=== PATIENT | female | born 2005 | race Two or more races ===

== ENCOUNTER 2024-07-25 21:16 | Emergency (ER) | payer MEDICAID, OTHER ==
[~2024-07-25] VITALS: Ht 165.1 cm; Wt 89.8 kg
[2024-07-25] MEDS: diphenhdrAMINE HCL 50 MG/1 ML VL IM ONE (22:45)
[2024-07-25 22:49] VITALS: BP 104/51; PULSE 73; RESP 17; TEMP 98.4; O2SAT 97
--- NOTE | 2024-07-25 23:15 | ED.PDOC ---
History of Present Illness(SKN HPI Comments This is a 19-year-old female states she is 8 weeks with a chief complaint of allergic reaction. She notes symptoms started 24 hours ago complaining of itchy rash to her body. She states unsure what she is allergic to denies any new laundry detergent any new foods or currently denies being on any new medications. States has not taken any medicine because she was unsure what to take because she is . She denies vaginal bleeding, spotting, pain, throat swelling, difficulty breathing, shortness of breath, or chest pain. Chief Complaint: Allergic Reaction Time Seen by MD: 21:49 History of Present Illness: Nurses Notes, Medications, Allergies Allergies: Coded Allergies: NO KNOWN ALLERGIES (Unverified , 07/25/24) Information Source: Patient Mode of Arrival: Ambulatory Past Medical History PAST MEDICAL HISTORY: Denies Surgical History: Denies all surgeries TRAFFIC SURVEY TECHNICIAN History: No Pertinent TRAFFIC SURVEY TECHNICIAN History Family History Family History: Reviewed,noncontributory to illness Social History Smoker: Non-Smoker Alcohol: Denies ETOH Use Drugs: Denies Drug Use Constitutional: denies: chills, diaphoresis, fatigue, fever, malaise, sweats, weakness, others EENTM: denies: blurred vision, double vision, ear bleeding, ear discharge, ear drainage, ear pain, ear ringing, eye pain, eye redness, hearing loss, mouth pain, mouth swelling, nasal discharge, nose bleeding, nose congestion, nose pain, photophobia, tearing, throat pain, throat swelling, voice changes, others Respiratory: denies: cough, hemoptysis, orthopnea, SOB at rest, shortness of breath, SOB with excertion, stridor, wheezing, others Cardiovascular: denies: chest pain, dizzy spells, diaphoresis, Dyspnea on ex ertion, edema, irregular heart beat, left arm pain, lightheadedness, palpitations, PND, syncope, others Gastrointestinal: denies: abdomen distended, abdominal pain, blood streaked bowels, constipated, diarrhea, dysphagia, difficulty swallowing, hematemesis, melena, nausea, poor appetite, poor fluid intake, rectal bleeding, rectal pain, vomiting, others Genitourinary: denies: abnormal vagina bleeding, burning, dyspareunia, dysuria, flank pain, frequency, hematuria, incontinence, pain, , vagina discharge, urgency, others Neurological: denies: dizziness, fainting, headache, left sided numbness, left sided weakness, numbness, paresthesia, pre-existing deficit, right sided numbness, right sided weakness, seizure, speech problems, tingling, tremors, weakness, others Musculoskeletal: denies: back pain, gout, joint pain, joint swelling, muscle pain, muscle stiffness, neck pain, others Integumetry: denies: bruises, change in color, change in hair/nails, dryness, laceration, lesions, lumps, rash, wounds, others Allergic/Immunocompromised: denies: Difficulty Healing, Frequent Infections, Hives, Itching, others Hematologic/Lymphatic: denies: anemia, blood clots, easy bleeding, easy bruising, swollen glands, others Endocrine: denies: excessive hunger, excessive sweating, excessive thirst, excessive urination, flushing, intolerance to cold, intolerance to heat, unexplained weight gain, unexplained weight loss, others Psychiatric: denies: anxiety, bipolar disorder, depression, hopeless, panic disorder, schizophrenia, sleepless, suicidal, others Physical Exam General Appearance: No Apparent Distress, Normal HEENT: Normal ENT Inspection, Pharynx Normal, TMs Normal Neck: Full Range of Motion, Non-Tender, Normal, Normal Inspection Respiratory: Chest Non-Tender, Lungs Clear, No Accessory Muscle Use, No Respiratory Distress, Normal Breath Sounds Cardiovascular: No Edema, No JVD, No Murmur, No Gallop, Normal Peripheral Pulses, Regular Rate/Rhythm Breast Exam: Deferred Gastrointestinal: No Organomegaly, Non Tender, No Pulsatile Mass, Normal Bowel Sounds, Soft Genitalia: Deferred Pelvic: Deferred Rectal: Deferred Extremities: Normal capillary refill, Normal inspection, Normal range of motion, Non-tender, No pedal edema Musculoskeletal : Apperance: Normal Neurologic: Alert, liner checker II-XII nml as Tested, No Motor Deficits, Normal Affect, Normal Mood, No Sensory Deficits Cerebellar Function: Normal Reflexes: Normal Skin: Dry, Normal Color, Rash (Urticarial rash noted on bilateral arms neck and face no open lesions or drainage.), Warm Lymphatic: No Adenopathy Was a procedure done? Was a procedure done?: No Differential Diagnosis (INTG) Differential Diagnosis: Cellulitis, Contact Dermatitis X-Ray, Labs, Meds, VS Vital Signs Date Time Temp Pulse Resp B/P (MAP) Pulse Ox O2 Delivery O2 Flow Rate FiO2 07/25/24 22:49 98.4 73 17 104/51 (68) 97 98.4 07/25/24 22:49 73 17 97 Room Air 07/25/24 21:44 98.8 79 18 113/60 (77) 98 07/25/24 21:44 18 98 Room Air* 0 21 Current Medications Medications (Trade) Dose Ordered Sig/Bienvenido Route Start Time Stop Time Status Last Admin Diphenhydramine HCl (Benadryl Injection) 25 mg ONCE ONCE IM 07/25/24 22:30 07/25/24 22:31 DC 07/25/24 22:45 X-Ray, Labs, Meds, VS Comment Patient given 25 mg Benadryl IM reports improvement in symptoms requesting discharge at this time. Advised to increase p.o. fluids with electrolytes. Advised to follow up with her PCP in 2-3 days as necessary. Advised to warp picker [id number] Benadryl and follow up labeled dosing instructions. ER return precautions given patient indicated understanding patient agrees with discharge plan of care. Time of 1ST Reevaluation: 23:14 Reevaluation 1ST: Improved Patient Education/Counseling: Diagnosis, Treatment, Prognosis, Need For Follow Up Family Education/Counseling: Diagnosis, Treatment, Prognosis, Need For Follow Up Departure 1 Departure Time of Disposition: 23:15 Impression: Primary Impression: Allergic reaction Qualified Codes: T78.40XA - Allergy, unspecified, initial encounter Disposition: HOME / SELF CARE / HOMELESS Condition: Stable Discharged With: Relative (Father) Critical Care Note Critical Care Time?: No Stability Stability form required: COLLEEN Correia Jul 25, 2024 23:15
== END 2024-07-25 23:53 | disposition home or self-care (01) ==
LOC: ER 21:16
DX: O9A.211 Injury, poisoning and certain other consequences of external causes complicating pregnancy, first trimester (principal); T78.49XA Other allergy, initial encounter; Z3A.08 8 weeks gestation of pregnancy
CPT/HCPCS: 96372; 99283; J1200

== ENCOUNTER 2025-02-03 10:15 | Observation (INO) | payer MEDICAID ==
[2025-02-03 11:03] LABS: Urine Bacteria None Seen /hpf (None Seen)
[2025-02-03 11:06] LABS: Basophils # (auto) 0 10 ^3/uL (0-0.2); Basophils % (auto) 0.3 % (0.0-2.0); Eosinophils # (auto) 0.1 10 ^3/uL (0-0.8); Eosinophils % (auto) 0.8 % (0.0-7.0); Hemoglobin 9.8 g/dL (12.2-16.2); Lymphocytes % (auto) 33.6 % (10.0-50.0); Monocytes # (auto) 0.6 10 ^3/uL (0-1.3); Nucleated Red Blood Cells % 0.1 %
[2025-02-03 11:08] LABS: Hematocrit 29.9 % (36.0-46.0); Lymphocytes # (auto) 3.2 10 ^3/uL (0.4-5.4); Mean Corpuscular Hemoglobin 24.9 pg (28.0-32.0); Mean Corpuscular Hgb Conc. 32.7 g/dL (32.0-36.0); Mean Corpuscular Volume 76.2 fL (80.0-100.0); Monocytes % (auto) 6.1 % (0.0-12.0); Neutrophils # (auto) 5.7 10 ^3/uL (1.6-8.6); Neutrophils % (auto) 59.2 % (37.0-80.0); Platelet Count (auto) 231 10^3/uL (140-450); Red Blood Cells 3.93 10^6/uL (4.0-5.20); Red Cell Distribution Width 14.8 % (11.8-14.3); White Blood Cell 9.6 10^3/uL (4.4-10.8)
[2025-02-03 11:20] LABS: Urine Blood Negative /uL (Negative); Urine Budding Yeast OCCASIONAL /hpf (None Seen); Urine Clarity Clear (Clear); Urine Color Colorless (Yellow); Urine Protein, UAD Negative (Negative); Urine Specific Gravity 1.008 (1.001-1.035); Urine Sperm PRESENT /hpf (None Seen); Urine Squamous Epithelial Cell FEW /hpf (<5); Urine Urobilinogen Normal (Negative); Urine WBC 2 /HPF (0-5); Urine pH 5.5 (5.0-9.0)
[2025-02-03 11:24] LABS: Alanine Aminotransferase 20 U/L (7-40); Albumin 3.6 g/dL (3.2-4.8); Anion Gap 10 (5-15); Aspartate Aminotransferase 24 U/L (<34); BUN/Creatinine Ratio 17.2 (10.0-20.0); Blood Urea Nitrogen 10 mg/dL (9-23); Calcium 9.2 mg/dL (8.7-10.4); Carbon Dioxide 21 mmol/L (20-31); Glucose 85 mg/dL (74-106); Potassium 3.8 mmol/L (3.5-5.1); Sodium 140 mmol/L (136-145); Total Protein 6.1 g/dL (5.7-8.2)
[2025-02-03 11:25] LABS: INR 0.94 (0.9-1.15)
[2025-02-03 11:27] LABS: Alkaline Phosphatase 134 U/L (46-116); Bilirubin, Total 0.2 mg/dL (0.2-1.0); Chloride 109 mmol/L (98-107)
[2025-02-03 11:34] LABS: Creatinine, Urine 36.24 mg/dL (30.0-125.0); Urine Protein/Creatinine Ratio 0.17
[2025-02-03 11:41] LABS: Protein, Urine < 6.0 mg/dL (1-14)
[2025-02-03 11:44] LABS: Uric Acid 5.9 mg/dL (3.1-7.8)
--- NOTE | 2025-02-03 13:59 | DVHDS2 ---
Physician Discharge Progress N Final Diagnosis: swellon exterimeties 36wks Operations or Procedures: Operations or Procedures nst mariam vega Condition on Discharge: Good Disposition: Home Discharge Instructions: Diet: Regular Activity: Light activity Medications: na Follow Up Care: Specialist: 1w Discharge Statement: "Patient was advised to return to the ER or call 911 if any headaches, dizziness, shortness of breath, chest pain, abdominal pain, bleeding, fevers, or worsening of medical condition. Patient was counseled about treatment plan, medications, possible side effects, patientverbalized understanding. All questions were answered to the best of my ability. This discharge took greater then 30 minutes in planning, reviewing documentation, counseling the patient, and discussing with other team members." Visit Coding OBGYN Date of Service: Feb 03, 2025 Billing Provider: DI ASHFORD DO DIRECTOR INSTITUTION Common Visit Codes: 85080-[id number] OBS CARE (HIGH) DIRECTOR INSTITUTION Procedure Codes: 69287-61- NON-STRESS TEST DI ASHFORD DO Feb 03, 2025 13:58
== END 2025-02-03 12:20 | disposition home or self-care (01) ==
LOC: UNDOADMOB 10:15 → LDRP 10:15 → UNDODISOB 12:20
PROVIDERS: ADMIT Obstetrics & Gynecology; ATTEND Obstetrics & Gynecology
DX: O26.893 Other specified pregnancy related conditions, third trimester (principal); M79.89 Other specified soft tissue disorders; Z3A.36 36 weeks gestation of pregnancy; Z79.899 Other long term (current) drug therapy
CPT/HCPCS: 36415; 59025; 80053; 81001; 81002; 82570; 84156; 84550; 85025; 85610; 85730; 94760; G0378

== ENCOUNTER 2025-02-07 12:16 | Observation (INO) | payer MEDICAID ==
[2025-02-07] MEDS ORDERED: PREN-96 PO (12:49)
[2025-02-07 13:09] LABS: Basophils # (auto) 0 10 ^3/uL (0-0.2); Basophils % (auto) 0.4 % (0.0-2.0); Eosinophils # (auto) 0.1 10 ^3/uL (0-0.8); Hematocrit 30.3 % (36.0-46.0); Monocytes # (auto) 0.5 10 ^3/uL (0-1.3); Red Cell Distribution Width 15.3 % (11.8-14.3); White Blood Cell 8.8 10^3/uL (4.4-10.8)
[2025-02-07 13:11] LABS: Eosinophils % (auto) 0.9 % (0.0-7.0); Lymphocytes # (auto) 2.6 10 ^3/uL (0.4-5.4); Lymphocytes % (auto) 29.1 % (10.0-50.0); Mean Corpuscular Volume 75.7 fL (80.0-100.0); Monocytes % (auto) 5.6 % (0.0-12.0); Neutrophils # (auto) 5.6 10 ^3/uL (1.6-8.6); Nucleated Red Blood Cells % 0.3 %; Platelet Count (auto) 241 10^3/uL (140-450)
[2025-02-07 13:21] LABS: INR 0.96 (0.9-1.15); Partial Thromboplastin Time 28.8 SEC (24.5-34.5); Prothrombin Time 10.2 sec (9.3-11.8)
[2025-02-07 14:02] LABS: Urine Bacteria FEW /hpf (None Seen); Urine Blood Negative /uL (Negative); Urine Clarity Clear (Clear); Urine Color Colorless (Yellow); Urine Protein, UAD Negative (Negative); Urine Specific Gravity 1.006 (1.001-1.035); Urine Squamous Epithelial Cell FEW /hpf (<5); Urine Urobilinogen Normal (Negative); Urine WBC 2 /HPF (0-5)
--- NOTE | 2025-02-07 14:03 | DVH ---
OB ULTRASOUND, LIMITED CLINICAL INDICATION: PIH TECHNIQUE: Multiple grayscale ultrasound and M-mode images were obtained of the pelvis for evaluation of intrauterine . COMPARISON: None FINDINGS: A single living fetus is seen in cephalic presentation. Biophysical profile: 03/26 breathin movements: 2 tone: 2 Amniotic fluid: 2 Placenta: Posterior. Amniotic fluid: Visibly normal. GEMA 12.6 cm heart rate: 125 beats/min. A complete anatomic survey was not performed on this exam. IMPRESSION: Biophysical profile: 03/26
[2025-02-07 14:08] LABS: Urine Protein/Creatinine Ratio 0.15
[2025-02-07 14:13] LABS: Alanine Aminotransferase 30 U/L (7-40); Anion Gap 11 (5-15); Aspartate Aminotransferase 32 U/L (<34); Blood Urea Nitrogen 11 mg/dL (9-23); Calcium 8.9 mg/dL (8.7-10.4); Carbon Dioxide 20 mmol/L (20-31); Glucose 80 mg/dL (74-106); Potassium 4.1 mmol/L (3.5-5.1); Sodium 139 mmol/L (136-145); Total Protein 6.2 g/dL (5.7-8.2); Uric Acid 6.3 mg/dL (3.1-7.8)
[2025-02-07 14:14] LABS: Albumin 3.6 g/dL (3.2-4.8)
[2025-02-07 14:19] LABS: Alkaline Phosphatase 134 U/L (46-116); Bilirubin, Total 0.3 mg/dL (0.2-1.0); Chloride 108 mmol/L (98-107)
[2025-02-07 14:19] LABS: Protein, Urine < 6.0 mg/dL (1-14)
[2025-02-07 14:20] LABS: Urine Total Volume, 24 Hours 4400 mL
[2025-02-07 14:22] LABS: Protein, Urine < 6.0 mg/dL (1-14)
--- NOTE | 2025-02-07 18:39 | DVHDS2 ---
Discharge Summary Date of Admission Feb 07, 2025 at 12:16 Date of Discharge: Feb 07, 2025 Admitting Diagnosis PIH 36 weeks here for evaluation and NST performed as well as turned to the entire urine protein 24 hour. No PH signs or symptoms blood pressure normal Labs/Diagnostic Data: Laboratory Results Test 02/07/25 12:54 02/07/25 12:17 02/07/25 12:15 White Blood Count 8.8 10^3/uL (4.4-10.8) Red Blood Count 4.00 10^6/uL (4.0-5.20) Hemoglobin 10.0 g/dL (12.2-16.2) Hematocrit 30.3 % (36.0-46.0) Mean Corpuscular Volume 75.7 fL (80.0-100.0) Mean Corpuscular Hemoglobin 25.0 pg (28.0-32.0) Mean Corpuscular Hemoglobin Concent 33.0 g/dL (32.0-36.0) Red Cell Distribution Width 15.3 % (11.8-14.3) Platelet Count 241 10^3/uL (140-450) Mean Platelet Volume 8.6 fL (6.9-10.8) Neutrophils (%) (Auto) 64.0 % (37.0-80.0) Lymphocytes (%) (Auto) 29.1 % (10.0-50.0) Monocytes (%) (Auto) 5.6 % (0.0-12.0) Eosinophils (%) (Auto) 0.9 % (0.0-7.0) Basophils (%) (Auto) 0.4 % (0.0-2.0) Neutrophils # (Auto) 5.6 10 ^3/uL (1.6-8.6) Lymphocytes # (Auto) 2.6 10 ^3/uL (0.4-5.4) Monocytes # (Auto) 0.5 10 ^3/uL (0-1.3) Eosinophils # (Auto) 0.1 10 ^3/uL (0-0.8) Basophils # (Auto) 0 10 ^3/uL (0-0.2) Nucleated Red Blood Cells 0.3 % Prothrombin Time 10.2 sec (9.3-11.8) Prothrombin Time INR 0.96 (0.9-1.15) Activated Partial Thromboplast Time 28.8 SEC (24.5-34.5) Sodium Level 139 mmol/L (136-145) Potassium Level 4.1 mmol/L (3.5-5.1) Chloride Level 108 mmol/L (98-107) Carbon Dioxide Level 20 mmol/L (20-31) Anion Gap 11 (5-15) Blood Urea Nitrogen 11 mg/dL (9-23) Creatinine 0.55 mg/dL (0.550-1.02) Glomerular Filtration Rate Calc 134 mL/min (>90) BUN/Creatinine Ratio 20.0 (10.0-20.0) Serum Glucose 80 mg/dL (74-106) Uric Acid 6.3 mg/dL (3.1-7.8) Calcium Level 8.9 mg/dL (8.7-10.4) Total Bilirubin 0.3 mg/dL (0.2-1.0) Aspartate Amino Transferase (AST) 32 U/L (<34) Alanine Aminotransferase (ALT) 30 U/L (7-40) Alkaline Phosphatase 134 U/L (46-116) Total Protein 6.2 g/dL (5.7-8.2) Albumin 3.6 g/dL (3.2-4.8) Urine Color Colorless (Yellow) Urine Clarity Clear (Clear) Urine pH 6.0 (5.0-9.0) Urine Specific [place] 1.006 (1.001-1.035) Urine Protein Negative (Negative) Urine Ketones Negative (Negative) Urine Blood Negative /uL (Negative) Urine Nitrite Negative (Negative) Urine Bilirubin Negative (Negative) Urine Urobilinogen Normal mg/dL (Negative) Urine Leukocyte Esterase 1+ /uL (Negative) Urine RBC 1 /hpf (0 - 4) Urine Microscopic WBC 2 /HPF (0-5) Urine Squamous Epithelial Cells Few /hpf (<5) Urine Bacteria Few /hpf (None Seen) Urine Glucose Normal mg/dL (Normal) Urine Creatinine 39.30 mg/dL (30.0-125.0) Urine Total Protein 24 Hour mg/24 Hr (<149.1) Urine Protein/Creatinine Ratio 0.15 Urine Total Protein < 6.0 mg/dL (1-14) Other Laboratory Tests 02/07/25 12:54 Brief Hx & Hospital Course: NST performed reassuring heart tones Condition at Discharge: Good Final Diagnosis/Problems List Thirty-six weeks generalized swelling rule out PH Discharge Disposition: Home Discharge Instruct/Medications Diet: Regular Activity: No Restrictions, As Tolerated Activity comment: Kick counts labor precautions and kick counts PH precautions Follow Up/Referral: As scheduled weekly Discharge Statement: "Patient was advised to return to the ER or call 911 if any headaches, dizziness, shortness of breath, chest pain, abdominal pain, bleeding, fevers, or worsening of medical condition. Patient was counseled about treatment plan, medications, possible side effects, patientverbalized understanding. All questions were answered to the best of my ability. This discharge took greater then 30 minutes in planning, reviewing documentation, counseling the patient, and discussing with other team members." ASSESSMENT ASSESSMENT Assessment Visit Coding OBGYN Date of Service: Feb 07, 2025 Billing Provider: TIN LOPEZ DO EDDY CURRENT INSPECTOR Common Visit Codes: 02191-MVM/OBS SAME DATE (LOW), 18306-ETB/OBS SAME DATE (MOD), 42448-JAR/OBS SAME DATE (HIGH) EDDY CURRENT INSPECTOR Procedure Codes: 54853-94- NON-STRESS TEST TIN LOPEZ DO Feb 07, 2025 18:39
== END 2025-02-07 14:59 | disposition home or self-care (01) ==
LOC: LDRP 12:16
PROVIDERS: ADMIT Obstetrics & Gynecology; ATTEND Obstetrics & Gynecology
DX: O13.3 Gestational [pregnancy-induced] hypertension without significant proteinuria, third trimester (principal); Z98.890 Other specified postprocedural states; Z79.899 Other long term (current) drug therapy; Z3A.36 36 weeks gestation of pregnancy
CPT/HCPCS: 36415; 59025; 76819; 80053; 81001; 81002; 82570; 84156; 84550; 85025; 85610; 85730; 94760; G0378

== ENCOUNTER 2025-02-11 07:28 | Inpatient (IN) | payer MEDICAID ==
[2025-02-11] VITALS (8 sets, daily range): BP systolic 119–128; BP diastolic 64–79; PULSE 66–87; RESP 15–18; TEMP 98.4–99.3; O2SAT 95–100
[~2025-02-11] VITALS: Ht 165.1 cm; Wt 90.7 kg
[~2025-02-11 07:28] MED LIST: PREN-96 PO
[2025-02-11 11:00] LABS: Basophils # (auto) 0 10 ^3/uL (0-0.2); Eosinophils # (auto) 0.1 10 ^3/uL (0-0.8); Hemoglobin 9.7 g/dL (12.2-16.2); Lymphocytes # (auto) 3.5 10 ^3/uL (0.4-5.4); Monocytes # (auto) 0.5 10 ^3/uL (0-1.3)
[2025-02-11 11:02] LABS: Basophils % (auto) 0.5 % (0.0-2.0); Eosinophils % (auto) 0.7 % (0.0-7.0); Hematocrit 29.4 % (36.0-46.0); Lymphocytes % (auto) 36.6 % (10.0-50.0); Mean Corpuscular Hemoglobin 24.8 pg (28.0-32.0); Mean Corpuscular Hgb Conc. 32.8 g/dL (32.0-36.0); Mean Corpuscular Volume 75.6 fL (80.0-100.0); Monocytes % (auto) 4.9 % (0.0-12.0); Neutrophils # (auto) 5.5 10 ^3/uL (1.6-8.6); Neutrophils % (auto) 57.3 % (37.0-80.0); Nucleated Red Blood Cells % 0.2 %; Platelet Count (auto) 239 10^3/uL (140-450); Red Blood Cells 3.89 10^6/uL (4.0-5.20); Red Cell Distribution Width 15.3 % (11.8-14.3); White Blood Cell 9.6 10^3/uL (4.4-10.8)
[2025-02-11 11:15] LABS: INR 0.96 (0.9-1.15); Partial Thromboplastin Time 28.8 SEC (24.5-34.5); Prothrombin Time 10.2 sec (9.3-11.8)
[2025-02-11 11:17] LABS: Alanine Aminotransferase 45 U/L (7-40); Albumin 3.5 g/dL (3.2-4.8); Alkaline Phosphatase 136 U/L (46-116); Anion Gap 8 (5-15); Aspartate Aminotransferase 47 U/L (<34); BUN/Creatinine Ratio 12.9 (10.0-20.0); Bilirubin, Total 0.3 mg/dL (0.2-1.0); Blood Urea Nitrogen 8 mg/dL (9-23); Calcium 8.4 mg/dL (8.7-10.4); Carbon Dioxide 21 mmol/L (20-31); Chloride 109 mmol/L (98-107); Glucose 79 mg/dL (74-106); Potassium 3.9 mmol/L (3.5-5.1); Sodium 138 mmol/L (136-145)
--- NOTE | 2025-02-11 11:39 | DVH ---
CLINICAL HISTORY: -induced hypertension. COMPARISON: US BIOPHYSICAL PROFILE on DOS: 02/07/25 TECHNIQUE: biophysical profile was performed. Transabdominal sonographic images of the fetus we re obtained. FINDINGS: The fetus is in cephalic position. heart rate measures 144 BPM. Amniotic fluid index measures 13.4 cm. The placenta is posterior in position without evidence of previa or abruption. Umbi lical cord is draped across the face, without nuchal cord demonstrated. BPP profile is an overall score of 8/8, with 2/2 points for breathing, with at least one episode of breathing over a 30 second duration during a 30 minute observation, 2/2 points for m ovements, with 3 or more discrete body or limb movements, 2/2 points for tone, with one or more episodes of extremity extension with return to flexion, or opening and closing of hand, and 2/ 2 points for amniotic fluid, with at least 1 pocket of amniotic fluid that measures 2 cm in 2 perpend icular planes. IMPRESSION: 1. BPP score of 8/8. 2. Umbilical cord is draped across the face without nuchal cord demonstrated.
[2025-02-11 12:42] LABS: Urine Bacteria FEW /hpf (None Seen); Urine Blood Negative /uL (Negative); Urine Color Yellow (Yellow); Urine Protein, UAD TRACE (Negative); Urine Squamous Epithelial Cell MOD /hpf (<5); Urine Urobilinogen Normal (Negative); Urine WBC 4 /HPF (0-5)
[2025-02-11 12:43] LABS: Protein, Urine 47.4 mg/dL (1-14)
[2025-02-11 12:46] LABS: Creatinine, Urine 126.75 mg/dL (30.0-125.0); Urine Protein/Creatinine Ratio 0.37
[2025-02-11 12:49] LABS: Urine Clarity Cloudy (Clear)
--- NOTE | 2025-02-11 13:40 | DVHHP ---
ADMIT DATE: 02/11/2025 CHIEF COMPLAINT: Impending HELLP, severe preeclampsia. HISTORY OF PRESENT ILLNESS: The patient is a 19-year-old 1 para 0 with estimated gestational age of 37+ weeks, admitted for primary . The patient has had bilateral cataract surgery for which the bd special education teacher had recommended her to undergo primary . She presents for evaluation of preeclampsia. She has been seen for evaluation of preeclampsia and her blood pressures diastolic were in the higher 80s, close to 90; uric acid was 7.4; UPC is pending, previously was 0.39. Her liver enzymes have gone up. The patient is edematous. Subsequently, the patient is being taken for primary secondary to severe preeclampsia and impending HELLP. PAST MEDICAL HISTORY: None. PAST SURGICAL HISTORY: Cataract surgery. SOCIAL HISTORY: None. FAMILY HISTORY: None. OB-HUMAN RESOURCES DIRECTOR HISTORY: Primigravid. REVIEW OF SYSTEMS: Consistent with HPI. PHYSICAL EXAMINATION: VITAL SIGNS: Stable, afebrile. HEENT: Within normal limits. CARDIOVASCULAR: Regular rate and rhythm. LUNGS: Clear to auscultation. BREASTS: Symmetrical. No masses. ABDOMEN: Gravid. PELVIC: Cervix closed, thick, high. EXTREMITIES: No clubbing, cyanosis, or edema. IMPRESSION: * Intrauterine at 37+ weeks with severe preeclampsia. * Impending HELLP. * History of cataract surgery, recommended to have primary by bd special education teacher. PLAN: Primary transverse section. Informed consent obtained. Risks and complications of surgery including infection; bleeding; hematoma formation; injury to bowel, bladder or surrounding organs; possibility of DVT; pulmonary embolus; and risks of anesthesia were discussed with the patient. Options reviewed. All questions answered. The patient fully understands. She wishes to proceed with planned procedure. DO FLORENCE Solorzano/EKRabia TID: [id number] RECEIPT: [id number]
[2025-02-11] MEDS ORDERED: ONDANSETRON HCL 4 MG/2 ML VIAL IV PRN ×2 (15:00→16:45)
[2025-02-11] MEDS ORDERED: GUM (CHEWING) 1 GUM CHEW CHEW ONE (15:00)
[2025-02-11] MEDS ORDERED: ceFAZolin 1GM/50ML 50 ML IV SCH (15:00)
[2025-02-11] MEDS ORDERED: KETOROLAC TROMETH 30 MG/ML 1ML VIAL ONE (15:15)
[2025-02-11] MEDS ORDERED: GLYCOPYRROLATE 0.2 MG/ML 1ML VIAL ONE (15:15)
[2025-02-11] MEDS ORDERED: MORPHINE SULF PF 5 MG/10 ML VIAL ONE (15:15)
[2025-02-11] MEDS ORDERED: ePHEDrine SULFATE 50 MG/ML AMP ONE (15:15)
[2025-02-11] MEDS ORDERED: ONDANSETRON HCL 4 MG/2 ML VIAL ONE (15:15)
[2025-02-11] MEDS ORDERED: fentaNYL CITRATE 100 MCG/2 ML VL ONE (15:15)
--- NOTE | 2025-02-11 16:00 | DVHOP2 ---
Operative Report DATE OF OPERATION: 02/11/25 PREOPERATIVE DIAGNOSES: IUP AT 37+WKS WITH SEVERE PREECLAMPSIA,IMPENDING HELLP SYNDROME,CONGINATAL MATERNAL CATRACT DESIRES PCS POSTOPERATIVE DIAGNOSES: SAME,NUCHAL CORDX1 SURGEON: Aiyana Martin D.O./JAYLAN ANESTHESIOLOGIST: NARAYAN TYPE OF ANESTHESIA : SPINAL CONSENT: The patient was informed of the risks and benefits of the procedure. The patient was informed of the risks and benefits of the procedure. These include but are not limited to , complications of anesthesia, postoperative infection, incomplete relief of symptoms, recurrence of symptoms, damage to blood vessels, nerves and tendons, deep venous thrombosis, pulmonary embolism and possible need for repeat surgery in the future. FINDINGS: Baby [B] with Apgars of [8] and [9]. Grossly normal appearing tubes and ovaries.NUCHAL CORD X1 PROCEDURES: Primary low transverse section. PROCEDURE IN DETAIL: The patient was taken to the operating room. She already had an epidural in place. She was then placed in supine position with a leftward tilt. A Pfannenstiel skin incision was made 2 cm above the symphysis pubis. This incision was carried to the underlying layer of fascia. The fascia was nicked in the midline. The incision was extended laterally. The superior aspect of the fascial incision was grasped and elevated. The same procedure was done to the inferior aspect of the fascial incision. The rectus muscles were then in the midline. Peritoneum was identified and entered. Peritoneal incision was extended superiorly and inferiorly with good visualization of the bladder. Bladder blade was inserted. Vesicouterine peritoneum was identified and entered. Lower uterine segment was incised in a transverse fashion. The was delivered from vertex presentation. Infant was baby [B] with Apgars [8] and 9. Placenta was then removed manually. Uterus was exteriorized and cleared of all clots and debris. The incision was repaired using 0 Vicryl in a double-layered fashion. No bleeding was noted. Uterus was then returned to the abdomen. The gutters were cleared off all clots and debris. Peritoneum was closed using 0 Vicryl, fascia was closed using 0 Maxon, and skin was closed using dalton. The patient tolerated the procedure well. She was taken to the recovery room in stable condition. ESTIMATED BLOOD LOSS: Estimated blood loss was noted to be 500 mL. Visit Coding OBN Date of Service: Feb 11, 2025 Billing Provider: AIYANA MARTIN DO SOUND ENGINEERING TECHNICIAN Common Visit Codes: 63530-AEMWWDC INP/OBS CARE (HIGH) SOUND ENGINEERING TECHNICIAN Procedure Codes: 63128-YICFP OB CARE,VAG DELIVERY, 10831-Q-SSUCKSX DELIVERY ONLY AIYANA MARTIN DO Feb 11, 2025 16:00
--- NOTE | 2025-02-11 16:03 | POSTOP ---
Post-Operative Note Post-Operative Note Preop Diagnosis IUP AT 37WKS WITH SEVERE PIH,CHAD MAT CATARACT REQUIRING PCS,IMPENDING HELLP Postop Diagnosis: SAME,NUCHAL CORDX1 Operation performed PLTCS Specimen BABY BOY,APGARS 8-9 Anesthesia: Regional Anesthesiologist: NARAYAN Blood Loss(fluid mgmt) 500ML Surgeon Aiyana Martin Dental Instrument Maker JAYLAN Implant NA Complications & Mgmt NONE Date 02/11/25 Time 16:01 Visit Coding OBGYN Date of Service: Feb 11, 2025 Billing Provider: AIYANA MARTIN DO ELECTRONIC GLUER Common Visit Codes: 19993-KYIQSTY INP/OBS CARE (HIGH) ELECTRONIC GLUER Procedure Codes: 61510-V-IUZJDYB DELIVERY ONLY AIYANA MARTIN DO Feb 11, 2025 16:03
[2025-02-11] MEDS: ceFAZolin 1GM/50ML 50 ML IV ONE (16:23)
[2025-02-11] MEDS ORDERED: DexAMETHasone SOD PHOS 10MG/1ML VIAL INJ IV PRN (16:45)
[2025-02-11] MEDS ORDERED: KETOROLAC TROMETH 30 MG/ML 1ML VIAL IV PRN (16:45)
[2025-02-11] MEDS ORDERED: NALOXONE HCL 0.4 MG/ML VIAL IV PRN (16:45)
[2025-02-11] MEDS ORDERED: diphenhdrAMINE HCL 50 MG/1 ML VL IV PRN (16:45)
[2025-02-11] MEDS: LACTATED RINGER'S 1,000 ML IV ONE (17:28)
[2025-02-11] MEDS: LACTATED RINGER'S 1,000 ML IV SCH (17:28)
[2025-02-11 23:45] LABS: Basophils # (auto) 0 10 ^3/uL (0-0.2); Eosinophils # (auto) 0 10 ^3/uL (0-0.8); Eosinophils % (auto) 0.1 % (0.0-7.0); Hemoglobin 9.5 g/dL (12.2-16.2); Monocytes # (auto) 0.6 10 ^3/uL (0-1.3)
[2025-02-11 23:47] LABS: Basophils % (auto) 0.4 % (0.0-2.0); Hematocrit 29.1 % (36.0-46.0); Lymphocytes # (auto) 2.9 10 ^3/uL (0.4-5.4); Lymphocytes % (auto) 20.8 % (10.0-50.0); Mean Corpuscular Hemoglobin 24.9 pg (28.0-32.0); Mean Corpuscular Hgb Conc. 32.6 g/dL (32.0-36.0); Mean Corpuscular Volume 76.3 fL (80.0-100.0); Monocytes % (auto) 4.3 % (0.0-12.0); Neutrophils # (auto) 10.3 10 ^3/uL (1.6-8.6); Neutrophils % (auto) 74.4 % (37.0-80.0); Nucleated Red Blood Cells % 0.2 %; Platelet Count (auto) 240 10^3/uL (140-450); Red Blood Cells 3.82 10^6/uL (4.0-5.20); Red Cell Distribution Width 15.1 % (11.8-14.3); White Blood Cell 13.8 10^3/uL (4.4-10.8)
[2025-02-12] VITALS (15 sets, daily range): BP systolic 106–137; BP diastolic 54–79; PULSE 61–84; RESP 15–18; TEMP 97.7–99.1; O2SAT 95–100
[2025-02-12] MEDS: ceFAZolin 1GM/50ML 50 ML IV SCH (00:01)
[2025-02-12 00:21] LABS: Amphetamine Screen, Urine Neg (NEGATIVE); Barbiturate Scree,Urine Neg (NEGATIVE); Benzodiazephine Screen, Urine Neg (NEGATIVE); Cannabinoid Screen, Urine Neg (NEGATIVE); Cocaine Screen, Urine Neg (NEGATIVE); Opiate Scree,Urine Neg (NEGATIVE); Phencyclidine Screen, Urine Neg (NEGATIVE)
[2025-02-12] MEDS: ACETAMINOPHEN IV 1000 MG/100ML (10MG/ML) IV ONE (03:25)
--- NOTE | 2025-02-12 07:11 | DVHPN2 ---
Chief Complaints Patient reports: No new complaints Nursing reports: No new complaints Objective Vitals Vital Signs Date Time Temp Pulse Resp B/P (MAP) Pulse Ox O2 Delivery O2 Flow Rate FiO2 02/12/25 05:00 68 18 115/58 (77) 95 02/12/25 03:00 99.1 99.1 02/11/25 19:00 Room Air 02/11/25 16:28 99 Medications Current Medications Medications (Trade) Dose Ordered Sig/Bienvenido Route PRN Reason Start Time Stop Time Status Last Admin Cefazolin Sodium 50 ml @ 100 mls/hr Q8H IV 02/11/25 23:00 02/12/25 16:29 02/12/25 00:01 Diphenhydramine HCl (Benadryl Injection) 25 mg Q4HP PRN IV FOR ITCHING 02/11/25 16:45 Ketorolac Tromethamine (Toradol Injection) 30 mg Q6HP PRN IV MODERATE PAIN (4-6 PAIN SCALE) 02/11/25 16:45 02/16/25 16:44 Lactated Ringer's 1,000 ml @ 125 mls/hr Q8H IV 02/11/25 13:15 02/12/25 00:02 Ondansetron HCl (Zofran) 4 mg Q4HP PRN IV NAUSEA / VOMITING 02/11/25 16:45 General: Normal Lungs: Normal Cardiovascular: Normal Abdominal: Soft Extremities: Normal Studies Laboratory Tests 02/11/25 22:59 02/11/25 10:44 Test 02/11/25 10:44 Range/Units Serum Glucose 79 74-106 mg/dL Ass/Plan Assessment s/p pcs Plan supportive care Visit Coding OBGYN Date of Service: Feb 12, 2025 Billing Provider: DI ASHFORD DO TRAILER TANK TRUCK DRIVER Common Visit Codes: 22894-QNQMNOC INP/OBS CARE (HIGH) DI ASHFORD DO Feb 12, 2025 07:11
[2025-02-12] MEDS ORDERED: IBUP-1456 PO (07:12)
[2025-02-12] MEDS ORDERED: HYDR-4072 PO (07:12)
[2025-02-12] MEDS ORDERED: DOCU-94 PO (07:12)
[2025-02-12 07:35] LABS: Basophils # (auto) 0 10 ^3/uL (0-0.2); Basophils % (auto) 0.4 % (0.0-2.0); Eosinophils # (auto) 0 10 ^3/uL (0-0.8); Eosinophils % (auto) 0.2 % (0.0-7.0); Hemoglobin 8.4 g/dL (12.2-16.2); Neutrophils # (auto) 8.3 10 ^3/uL (1.6-8.6); Nucleated Red Blood Cells % 0.1 %; White Blood Cell 11.7 10^3/uL (4.4-10.8)
[2025-02-12 07:37] LABS: Hematocrit 26.1 % (36.0-46.0); Lymphocytes # (auto) 2.8 10 ^3/uL (0.4-5.4); Lymphocytes % (auto) 23.6 % (10.0-50.0); Mean Corpuscular Hemoglobin 24.4 pg (28.0-32.0); Mean Corpuscular Hgb Conc. 32.3 g/dL (32.0-36.0); Mean Corpuscular Volume 75.5 fL (80.0-100.0); Monocytes # (auto) 0.5 10 ^3/uL (0-1.3); Monocytes % (auto) 4.5 % (0.0-12.0); Neutrophils % (auto) 71.3 % (37.0-80.0); Platelet Count (auto) 224 10^3/uL (140-450); Red Blood Cells 3.45 10^6/uL (4.0-5.20); Red Cell Distribution Width 15.1 % (11.8-14.3)
[2025-02-12 07:53] LABS: Alanine Aminotransferase 34 U/L (7-40); Alkaline Phosphatase 108 U/L (46-116); Anion Gap 7 (5-15); BUN/Creatinine Ratio 10.4 (10.0-20.0); Bilirubin, Total 0.3 mg/dL (0.2-1.0); Calcium 8.9 mg/dL (8.7-10.4); Carbon Dioxide 23 mmol/L (20-31); Chloride 106 mmol/L (98-107); Glucose 81 mg/dL (74-106); Potassium 4.1 mmol/L (3.5-5.1); Sodium 136 mmol/L (136-145)
[2025-02-12 07:59] LABS: Albumin 3.1 g/dL (3.2-4.8); Aspartate Aminotransferase 43 U/L (<34); Blood Urea Nitrogen 8 mg/dL (9-23); Total Protein 5.1 g/dL (5.7-8.2)
[2025-02-12] MEDS: HYDROcodone-ACET 5/325MG TAB PO PRN (11:06)
[2025-02-12] MEDS: IBUPROFEN 800 MG TAB PO PRN (11:59)
[2025-02-12] MEDS: SIMETHICONE 80 MG CHEWABLE TABLET PO SCH (16:34)
[2025-02-12] MEDS: ONDANSETRON HCL 4 MG/2 ML VIAL IV ONE (18:45)
[2025-02-12] MEDS: LACT. RINGERS/OXYTOCIN 20UNITS 1,000 ML IV ONE (18:45)
[2025-02-12] MEDS: ceFAZolin 1GM/50ML 50 ML IV ONE ×2 (18:45→18:55)
[2025-02-12] MEDS: TETRACAINE 1% INJ 2 ML VIAL IJ ONE (18:45)
[2025-02-12] MEDS: DOCUSATE SOD 100 MG CAP PO SCH (21:50)
[2025-02-13] MEDS: TETANUS-DIPTH-ACEL PERTUSSIS 0.5ML SYR Tdap IM ONE (02:00)
[2025-02-13 03:00] VITALS: BP 114/60; PULSE 66; RESP 17; TEMP 98.1; O2SAT 96
--- NOTE | 2025-02-13 05:15 | DVHPN2 ---
Chief Complaints Patient reports: No new complaints Nursing reports: No new complaints Objective Vitals Vital Signs Date Time Temp Pulse Resp B/P (MAP) Pulse Ox O2 Delivery O2 Flow Rate FiO2 02/13/25 03:00 98.1 66 17 114/60 (78) 96 98.1 02/12/25 18:45 Room Air 02/11/25 16:28 99 Medications Current Medications Medications (Trade) Dose Ordered Sig/Bienvenido Route PRN Reason Start Time Stop Time Status Last Admin Acetaminophen/ Hydrocodone Bitart ([place] 5/325MG Tab) 1 tab Q4HPRN PRN PO FOR PAIN 1-6 02/12/25 10:45 Acetaminophen/ Hydrocodone Bitart ([place] 5/325MG Tab) 2 tab Q4HPRN PRN PO FOR PAIN 7-02/12/25 10:45 02/13/25 01:58 Dimethicone (Mylicon Tab) 80 mg QID PO 02/12/25 12:00 02/12/25 21:50 Docusate Sodium (Colace Capsule) 100 mg Q12HR PO 02/12/25 22:00 02/12/25 21:50 Ibuprofen (Motrin Tablet) 800 mg Q8HP PRN PO BREAKTHROUGH PAIN 02/12/25 10:45 02/12/25 23:03 General: Normal Lungs: Normal Cardiovascular: Normal Abdominal: Soft Extremities: Normal Studies Laboratory Tests 02/12/25 07:15 Test 02/12/25 07:15 Range/Units Serum Glucose 81 74-106 mg/dL Ass/Plan Assessment s/p pcs Plan DC HOME FU IN 1WKJ Visit Coding OBGYN Date of Service: Feb 13, 2025 Billing Provider: DI ASHFORD DO MEAT TRIMMER Common Visit Codes: 99782-RZLUQBO OBS CARE (HIGH), 39039-OZT/OBS DISCH DAY >30MIN MEAT TRIMMER Procedure Codes: 35480-D-GXIXLKN DELIVERY ONLY DI ASHFORD DO Feb 13, 2025 05:15
--- NOTE | 2025-02-13 05:17 | DVHDS2 ---
Obstetrics Discharge Summary Obstetrics Discharge Summary Date of Admission: Feb 11, 2025 Date of Discharge: Feb 13, 2025 Reason For Admission: Section (Primary) Procedures: NST Intrapartum Procedures: (Low Cervical Transverse) Procedures: None Operative Complicat: None Discharge Diagnosis: Delivery Discharge Information: Activity (Other), Diet (Routine), Medications (Name:), Instructions (Routine), Discharge to (Home), Discarge date (-) Visit Coding OBGYN Date of Service: Feb 13, 2025 Billing Provider: DI ASHFORD DO HR OPERATIONS ADVISOR Common Visit Codes: 00713-[id number] INP/OBS CARE(HIGH), 78684-PEG/OBS DISCH DAY <30MIN, 91519-PGG/OBS DISCH DAY >30MIN HR OPERATIONS ADVISOR Procedure Codes: 16716-Y-GYQQYBF DELIVERY ONLY DI ASHFORD DO Feb 13, 2025 05:17
[2025-02-13 07:00] VITALS: BP 135/74; PULSE 79; RESP 17; RESP 20; TEMP 98.3; O2SAT 97
[2025-02-13 10:46] VITALS: BP 119/67; PULSE 81; RESP 18; TEMP 97.7; O2SAT 96
[2025-02-13 15:07] VITALS: BP 122/64; PULSE 77; RESP 16; O2SAT 98
[2025-02-13] MEDS: HYDROcodone-ACET 5/325MG TAB PO PRN (15:23)
[2025-02-13 19:30] VITALS: BP 123/62; PULSE 82; RESP 16; TEMP 98.5; O2SAT 97
[2025-02-13 23:00] VITALS: BP 125/56; PULSE 87; RESP 17; TEMP 98.6; O2SAT 98
[2025-02-14 03:00] VITALS: BP 128/64; PULSE 80; RESP 16; TEMP 98.6; O2SAT 97
[2025-02-14] MEDS ORDERED: MEASLES, MUMPS & RUBELLA VAC(MMRII) 0.5ML SC ONE (06:15)
[2025-02-14 07:00] VITALS: BP 128/64; PULSE 80; PULSE 82; RESP 16; RESP 18; TEMP 98.6; O2SAT 96; O2SAT 97
--- NOTE | 2025-02-14 07:53 | DVHPN2 ---
Progress Note Date Seen: Feb 14, 2025 Subjective S: Lochia minimal. Regular diet well tolerated. Ambulating and voiding well w/o feeling dizzy or lightheaded. Pain relieved with oral analgesics. Passing flatus; has had BM x1 & formula feeding w/o problem Desires& Requests to be discharged today vital signs Vital Sign Date Time Temp Pulse Resp B/P (MAP) Pulse Ox O2 Delivery O2 Flow Rate FiO2 02/14/25 03:00 98.6 80 16 128/64 (85) 97 98.6 02/13/25 19:30 Room Air medications Current Medications Medications Dose Ordered Sig/Bienvenido Route Start Time Stop Time Status Last Admin Dose Admin Docusate Sodium 100 mg Q12HR PO 02/12/25 22:00 02/13/25 22:08 100 MG Dimethicone 80 mg QID PO 02/12/25 12:00 02/13/25 22:08 80 MG Ibuprofen 800 mg Q8HP PRN PO 02/12/25 10:45 02/13/25 22:07 800 MG Acetaminophen/ Hydrocodone Bitart 1 tab Q4HPRN PRN PO 02/12/25 10:45 02/13/25 15:23 1 TAB Acetaminophen/ Hydrocodone Bitart 2 tab Q4HPRN PRN PO 02/12/25 10:45 02/13/25 08:20 2 TAB laboratory and microbiology Laboratory Tests 02/12/25 07:15 Test 02/12/25 07:15 Range/Units Serum Glucose 81 74-106 mg/dL Objective O: A&O x3 NAD. Afebrile, VSS Chest: heart and lung sounds normal. Breasts: Nipples intact w/o cracks or soreness Abdomen: normal BS, soft, non-tender, no rebound or guarding, fundus firm @ U- 1, Lower abdominal Incision site with Sylke dressing on, open to fresh air same dry and intact. No edema, erythema or induration Extremities: no edema or tenderness Lochia - minimal Assessment/Plan A/P: 20 yo now Post operative & ppd #3 s/p Primary Section doing well. Anemia Blood Type: A Rh: Positive Breast feeding and Formula feeding Rubella non immune; MMR- given Pain control with oral medications Bowel regimen: Increase fluid intake and fiber in diet, Laxative PRN PP BCM Plan: undecided Discharge plan: May discharge home later today if condition remains stable Plan discussed with: Patient, Spouse Visit Coding OBGYN Date of Service: Feb 14, 2025 Billing Provider: ARIANE VELAZQUEZ CNM [employer] Common Visit Codes: [id number] INP/OBS CARE(HIGH), 80711-QYK/OBS DISCH DAY <30MIN [employer] Procedure Codes: 72470-[id number] DELIVERY ONLY ARIANE VELAZQUEZ CNM Feb 14, 2025 07:53
--- NOTE | 2025-02-14 08:03 | DVHDS2 ---
Discharge Summary Date of Admission Feb 11, 2025 at 13:00 Date of Discharge: Feb 13, 2025 Admitting Diagnosis IUP at 37w 3d Scheduled Primary C- section d/t Congenital cataract (per Manager Banquet recommendation) Labs/Diagnostic Data: Laboratory Results Test 02/12/25 07:15 02/11/25 13:30 02/11/25 11:03 02/11/25 10:44 White Blood Count 11.7 10^3/uL (4.4-10.8) Red Blood Count 3.45 10^6/uL (4.0-5.20) Hemoglobin 8.4 g/dL (12.2-16.2) Hematocrit 26.1 % (36.0-46.0) Mean Corpuscular Volume 75.5 fL (80.0-100.0) Mean Corpuscular Hemoglobin 24.4 pg (28.0-32.0) Mean Corpuscular Hemoglobin Concent 32.3 g/dL (32.0-36.0) Red Cell Distribution Width 15.1 % (11.8-14.3) Platelet Count 224 10^3/uL (140-450) Mean Platelet Volume 8.4 fL (6.9-10.8) Neutrophils (%) (Auto) 71.3 % (37.0-80.0) Lymphocytes (%) (Auto) 23.6 % (10.0-50.0) Monocytes (%) (Auto) 4.5 % (0.0-12.0) Eosinophils (%) (Auto) 0.2 % (0.0-7.0) Basophils (%) (Auto) 0.4 % (0.0-2.0) Neutrophils # (Auto) 8.3 10 ^3/uL (1.6-8.6) Lymphocytes # (Auto) 2.8 10 ^3/uL (0.4-5.4) Monocytes # (Auto) 0.5 10 ^3/uL (0-1.3) Eosinophils # (Auto) 0 10 ^3/uL (0-0.8) Basophils # (Auto) 0 10 ^3/uL (0-0.2) Nucleated Red Blood Cells 0.1 % Sodium Level 136 mmol/L (136-145) Potassium Level 4.1 mmol/L (3.5-5.1) Chloride Level 106 mmol/L (98-107) Carbon Dioxide Level 23 mmol/L (20-31) Anion Gap 7 (5-15) Blood Urea Nitrogen 8 mg/dL (9-23) Creatinine 0.77 mg/dL (0.550-1.02) Glomerular Filtration Rate Calc 113 mL/min (>90) BUN/Creatinine Ratio 10.4 (10.0-20.0) Serum Glucose 81 mg/dL (74-106) Calcium Level 8.9 mg/dL (8.7-10.4) Total Bilirubin 0.3 mg/dL (0.2-1.0) Aspartate Amino Transferase (AST) 43 U/L (<34) Alanine Aminotransferase (ALT) 34 U/L (7-40) Alkaline Phosphatase 108 U/L (46-116) Total Protein 5.1 g/dL (5.7-8.2) Albumin 3.1 g/dL (3.2-4.8) Treponema pallidum Antibody Non-reactive (Negative) Hepatitis C Antibody Negative (Negative) Urine Color Yellow (Yellow) Urine Clarity Cloudy (Clear) Urine pH 6.0 (5.0-9.0) Urine Specific [place] 1.020 (1.001-1.035) Urine Protein Trace (Negative) Urine Ketones Negative (Negative) Urine Blood Negative /uL (Negative) Urine Nitrite Negative (Negative) Urine Bilirubin Negative (Negative) Urine Urobilinogen Normal mg/dL (Negative) Urine Leukocyte Esterase 1+ /uL (Negative) Urine RBC 2 /hpf (0 - 4) Urine Microscopic WBC 4 /HPF (0-5) Urine Squamous Epithelial Cells Mod /hpf (<5) Urine Bacteria Few /hpf (None Seen) Urine Creatinine 126.75 mg/dL (30.0-125.0) Urine Protein/Creatinine Ratio 0.37 Urine Glucose Normal mg/dL (Normal) Urine Total Protein 47.4 mg/dL (1-14) Urine Opiates Screen Neg (NEGATIVE) Urine Fentanyl Screen Neg (NEGATIVE) Urine Barbiturates Screen Neg (NEGATIVE) Urine Phencyclidine Screen Neg (NEGATIVE) Urine Amphetamines Screen Neg (NEGATIVE) Urine Benzodiazepines Screen Neg (NEGATIVE) Urine Cocaine Screen Neg (NEGATIVE) Urine Cannabinoids Screen Neg (NEGATIVE) Prothrombin Time 10.2 sec (9.3-11.8) Prothrombin Time INR 0.96 (0.9-1.15) Activated Partial Thromboplast Time 28.8 SEC (24.5-34.5) Uric Acid 7.0 mg/dL (3.1-7.8) Other Laboratory Tests 02/12/25 07:15 Brief Hx & Hospital Course: Admitted on 02/11/25 at 37w 3d EGA for scheduled primary C- section d/t h/o congenital cataract. Per Manager Banquet recommendation, not advisable for patient to labor /push. See operative notes for details Normal course; meeting milestones w/o any problem or complications. Operations or Procedures Primary Low Transverse section Condition at Discharge: Stable Final Diagnosis/Problems List SAME, Primary Section NUCHAL CORDX1 Anemia Discharge Disposition: Home Discharge Instruct/Medications Diet: Regular Diet comment: Routine regular diet rich in fiber, protein, iron and vitamin C with adequate fluid intake. Activity: Light activity Activity comment: Advance as tolerated. Balance activities with rest periods. No heavy lifting, pushing or straining. Pelvic rest x 6weeks Follow Up/Referral: Post operative and self care instructions given. self care instructions given. emergency signs and symptoms including but not limited to pre-eclampsia precautions and signs of infection, PPH & of PPD reviewed with patient. Follow up with OB Provider in 1 week Medications: [place], Ibuprofen, Docusate Sodium Ferrous Sulfate Discharge Statement: Post operative and self care instructions given. self care instructions given. emergency signs and symptoms including but not limited to pre-eclampsia precautions and signs of infection, PPH & of PPD reviewed with patient. Follow up with OB Provider in 1 week "Patient was advised to return to the ER or call 911 if any headaches, dizziness, shortness of breath, chest pain, abdominal pain, bleeding, fevers, or worsening of medical condition. Patient was counseled about treatment plan, medications, possible side effects, patientverbalized understanding. All questions were answered to the best of my ability. This discharge took greater then 30 minutes in planning, reviewing documentation, counseling the patient, and discussing with other team members." ASSESSMENT ASSESSMENT Hospital Course Admitted on 02/11/25 at 37w 3d EGA for scheduled primary C- section d/t h/o congenital cataract. Per Manager Banquet recommendation, not advisable for patient to labor /push. See operative notes for details Normal course; meeting milestones w/o any problem or complications. Assessment SAME Primary Section, NUCHAL CORDX1 Anemia Visit Coding OBGYN Date of Service: Feb 14, 2025 Billing Provider: ARIANE VELAZQUEZ CNM PSYCHOLOGIST [employer]PERIMENT[employer] Common Visit Codes: [id number] INP/OBS CARE(HIGH), 24379-CRR/OBS DISCH DAY <30MIN PSYCHOLOGIST [employer]PERIMENTAL Procedure Codes: [id number] DELIVERY ONLY ARIANE VELAZQUEZ CNM Feb 14, 2025 08:03
== END 2025-02-14 11:58 | disposition home or self-care (01) | DRG 540 ==
LOC: LDRP 10:25 → OBSVTOIN 13:00 → LDRP 02-12 03:33
PROVIDERS: ADMIT Obstetrics & Gynecology; ATTEND Obstetrics & Gynecology
PROC: 10D00Z1 Extraction of Products of Conception, Low, Open Approach (ICD-10-PCS; principal; 2025-02-11 15:18)
DX: O99.892 Other specified diseases and conditions complicating childbirth (principal); O14.14 Severe pre-eclampsia complicating childbirth; O69.81X0 Labor and delivery complicated by cord around neck, without compression, not applicable or unspecified; Z3A.37 37 weeks gestation of pregnancy; Z37.0 Single live birth; O99.02 Anemia complicating childbirth; Z98.890 Other specified postprocedural states; Z86.69 Personal history of other diseases of the nervous system and sense organs; O60.14X0 Preterm labor third trimester with preterm delivery third trimester, not applicable or unspecified
CPT/HCPCS: 36415; 59025; 76819; 80053; 80307; 81001; 81002; 82570; 84156; 84550; 85025; 85610; 85730; 86780; 86803; 86850; 86900; 86901; 90715; 94760; 94762; 96360; 96361; 96365; 96366; 96372; G0378; J0131; J1885; J2405